=== PATIENT | male | born 1960 | race Caucasian/White ===

== ENCOUNTER 2018-01-28 14:58 | Emergency (ER) | payer OTHER ==
[~2018-01-28] VITALS: Ht 188 cm; Wt 117.9 kg
[~2018-01-28 14:58] MED LIST: AMIODARONE IV; ASPIRIN EC325 MG PO; ATORVASTATIN CA80 MG PO; LISINOPRIL20 MG PO; METFORMIN HYDR500 M1 PO; METOPROLOL SUC100 MG PO; NITROGLYCERIN D25 MG IV; NOVOLIN R1000 UNIT2 SC
[2018-01-28 15:23] VITALS: BP 118/73
--- NOTE | 2018-01-28 16:18 | RADIOLOGY REPORT ---
EXAMINATION: XR CHEST CLINICAL INFORMATION: Cough and nasal discharge COMPARISON: Portable chest April 2014. CT chest April 2014. TECHNIQUE: 2 views of the chest were obtained. FINDINGS: Humerus. A single-lead pacer is in place with wire intact unchanged. Lungs clear. Cardiac silhouette mediastinum pulmonary vascularity normal. Multiple stents overlie the cardiac silhouette IMPRESSION: No acute disease
--- NOTE | 2018-01-28 16:21 | ED INFLUENZA/URI COMPLAINT ---
History of Present Illness General Chief Complaint: General Adult Stated Complaint: COUGHING UP MUCOUS SINCE WEDNESDAY,LOSS OF SLEEP X3 D Source: patient Exam Limitations: no limitations Vital Signs & Intake/Output Vital Signs & Intake/Output Vital Signs Date Time Temp Pulse Resp B/P B/P Pulse O2 O2 Flow FiO2 Mean Ox Delivery Rate 01/28 1659 95 Room Air Room Air 01/28 1523 97.3 79 22 118/73 94 Room Air Allergies Coded Allergies: NO KNOWN ALLERGIES (05/15/14) Triage Note: PT STATES HE HAS BEEN COUGHING UP MUCOUS SINCE WEDNESDAY. PT STATES HE HAS HAD A COUGH THAT HAS KEPT HIM AWAKE FOR THE PAST 3 DAYS. PT STATES HIS SPUTUM IS CLEAR AND HE IS NOT SURE IF HE IS HAVING ALLERGYS. PT HAD PCP APPT. TODAY BUT HIS DR. OFFICE CLOSED DUE TO WATER MAIN BREAK. Triage Nurses Notes Reviewed? yes Onset: Gradual Duration: constant Timing: recent history Severity: moderate HPI: Patient is a 57-year-old male with a 4-5 day history of productive byrne cough chest congestion generalized weakness and fatigue and intermittent chills and tactile fevers. Patient is a former smoker. Denies any similar sick contacts denies any arm pain jaw pain nausea vomiting diaphoresis leg swelling chest pain hemoptysis (Gaye PAYNE,Sandor) Reconcile Medications Albuterol Sulfate (Ventolin Hfa) 90 MCG HFA.AER.AD 2 PUF INH Q4-6 PRN PRN COUGH Aspirin (Aspirin*) 325 MG TABLET 1 TAB PO DAILY HEART HEALTH (Reported) Atorvastatin Calcium 80 MG TABLET 1 TAB PO DAILY UNK (Reported) Azithromycin (Zithromax) 500 MG TABLET 1 TAB PO DAILY BRONCHITIS Benzonatate (Tessalon Perle) 100 MG CAPSULE 1 CAP PO TID PRN COUGH Codeine Phosphate/Guaifenesi (Cheratussin AC Syrup) 10 MG-100 MG/5 ML LIQUID 10 ML PO QPM PRN COUGH Dulaglutide (Trulicity) 1.5 MG/0.5 ML PEN.INJCTR 1 DOSE SC Q168 DM (Reported) Furosemide 40 MG TABLET 1 TAB PO DAILY UNK (Reported) Lisinopril 20 MG TABLET 1 TAB PO DAILY BP (Reported) Metformin HCl (Metformin HCl ER) 500 MG TAB.ER.24H 2 TAB PO D DM (Reported) Methylprednisolone. (Medrol) 4 MG TAB.DS.PK 1 DP PO AD INFLAMMATION 6 on day 1 then reduce by one tablet daily until gone Metoprolol Succ XL (Toprol XL) 100 MG TAB.ER.24H 1 TAB PO DAILY BP (Reported) Spironolactone 25 MG TABLET 1 TAB PO DAILY UNK (Reported) (Monroe Fox DO) Past History Travel History Traveled to [place] past 21 day No Medical History Any Pertinent Medical History? see below for history Cardiovascular: hypertension, hyperlipidemia, TACHY [place] X3 Endocrine: diabetes History of MRSA: No History of VRE: No History of CDIFF: No Pneumonia Vaccine: 07/09/06 Influenza Vaccine: 04/24/06 Surgical History Surgical History: non-contributory Psychosocial History Who do you live with Spouse Services at Home None What is your primary language Chinese Tobacco Use: Current Not Daily Daily Tobacco Use Amount/Type: =< 4 Cigarettes daily ETOH Use: denies use Illicit Drug Use: denies illicit drug use Family History Family History, If Any: No Known Family History. Hx Contributory? No (Sandor Rocha) Review of Systems Review of Systems Constitutional: Reports: no symptoms. EENTM: Reports: no symptoms. Respiratory: Reports: see HPI, cough. Cardiovascular: Reports: see HPI. GI: Reports: no symptoms. Genitourinary: Reports: no symptoms. Musculoskeletal: Reports: no symptoms. Skin: Reports: no symptoms. Neurological/Psychological: Reports: no symptoms. Hematologic/Endocrine: Reports: no symptoms. Immunologic/Allergic: Reports: no symptoms. All Other Systems: Reviewed and Negative (Sandor Rocha) Physical Exam Physical Exam General Appearance: well developed/nourished (the), no apparent distress, alert, comfortable Head: atraumatic Eyes: Bilateral: normal appearance. Ears, Nose, Throat: moist mucous membrane, hearing grossly normal, Tympanic normal, pharynx normal, nasal congestion Neck: normal inspection Respiratory: chest non-tender, no respiratory distress, rhonchi Cardiovascular: regular rate/rhythm Gastrointestinal: normal bowel sounds, soft, non-tender Extremities: normal inspection, no edema Neurologic/Psych: no motor/sensory deficits, awake, alert Skin: intact, normal color, warm/dry Core Measures Sepsis Present: No Sepsis Focused Exam Completed? No (Sandor Rocha) Progress Differential Diagnosis: influenza, meningitis, neutropenia, otitis, pneumonia, pharyngitis, sinusitis Plan of Care: Patient upon initial presentation is resting comfortably bedside no respiratory distress mild expiratory rhonchi denies any chest pain chest x-ray was unremarkable patient will be treated for concerns of bronchitis On discharge patient looks well distress and will comply with discharge instructions and had no questions Diagnostic Imaging: Viewed by Me: Radiology Read. CXR Impression: no acute abnormality, no infiltrates Initial ED EKG: none Comments: PATIENT: ART AVILA PRESENT AGE: 57 PATIENT ACCOUNT NO: [id number] : 62 LOCATION: [facility] ORDERING PHYSICIAN: Sandor PAYNE SERVICE DATE: 01/28/18 EXAM TYPE: RAD - XRY-CHEST XRAY, TWO VIEWS EXAMINATION: XR CHEST CLINICAL INFORMATION: Cough and nasal discharge COMPARISON: Portable chest April 2014. CT chest April 2014. TECHNIQUE: 2 views of the chest were obtained. FINDINGS: Humerus. A single-lead pacer is in place with wire intact unchanged. Lungs clear. Cardiac silhouette mediastinum pulmonary vascularity normal. 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 Prescriptions are waiting at [facility]. If no better on Wednesday follow-up with her doctor. If symptoms worsen return to emergency room. Continue home medications as directed Departure Forms: Customer Survey General Discharge Information Prescriptions: Current Visit Scripts Azithromycin (Zithromax) 1 TAB PO DAILY #5 TAB Benzonatate (Tessalon Perle) 1 CAP PO TID PRN COUGH #15 CAP Codeine Phosphate/Guaifenesi (Cheratussin AC Syrup) 10 ML PO QPM PRN COUGH #100 ML Methylprednisolone. (Medrol) 1 DP PO AD #1 DP 6 on day 1 then reduce by one tablet daily until gone Albuterol Sulfate (Ventolin Hfa) 2 PUF INH Q4-6 PRN PRN COUGH #1 INHAL (Sandor Rocha) PA/CONTROLLED AREA CHECKER Co-Sign Statement Statement: ED Attending supervision documentation- [] I saw and evaluated the patient. I have also reviewed all the pertinent lab results and diagnostic results. I agree with the findings and the plan of care as documented in the PA's/CONTROLLED AREA CHECKER's documentation. [X] I have reviewed the ED Record and agree with the PA's/CONTROLLED AREA CHECKER's documentation. [] Additions or exceptions (if any) to the PAs/CONTROLLED AREA CHECKER's note and plan are summarized below: [] (Monroe Fox DO)
[2018-01-28] MEDS ORDERED: VENTOLIN HFA18 GM INH (16:41)
[2018-01-28] MEDS ORDERED: CHERATUSSIN AC118 M1 PO (16:41)
[2018-01-28] MEDS ORDERED: MEDROL4 M2 PO (16:41)
[2018-01-28] MEDS ORDERED: ZITHROMAX500 M2 PO (16:41)
[2018-01-28] MEDS ORDERED: TESSALON PERLE100 M1 PO (16:41)
[2018-01-28] MEDS ORDERED: LISINOPRIL20 M1 PO (17:01)
[2018-01-28] MEDS ORDERED: ATORVASTATIN CA80 M1 PO (17:02)
[2018-01-28] MEDS ORDERED: METFORMIN HCL500 M4 PO (17:02)
[2018-01-28] MEDS ORDERED: FUROSEMIDE40 M1 PO (17:02)
[2018-01-28] MEDS ORDERED: SPIRONOLACTONE25 M1 PO (17:02)
[2018-01-28] MEDS ORDERED: TOPROL XL100 M1 PO (17:03)
[2018-01-28] MEDS ORDERED: ASPIRIN325 M2 PO (17:04)
[2018-01-28] MEDS ORDERED: TRULICITY1.5 MG/0.5 SC (17:05)
== END 2018-01-28 17:07 ==
LOC: ERH 14:58
DX: J40 Bronchitis, not specified as acute or chronic (principal); J06.9 Acute upper respiratory infection, unspecified; F17.210 Nicotine dependence, cigarettes, uncomplicated
CPT/HCPCS: 71046